=== PATIENT | male | born 2000 | race African-American/Black ===

== ENCOUNTER 2021-06-20 17:03 | Emergency (ER) | payer OTHER, SELFPAY ==
[2021-06-20 17:25] VITALS: BP 122/65; PULSE 59; RESP 18; TEMP 36.1; O2SAT 100; BMI 20.5
--- NOTE | 2021-06-20 18:11 | ED.MEDCLEAR ---
HPI - Medical Clearance General Chief complaint: Medical Clearance Stated complaint: withdrawal Time Seen by Provider: 06/20/21 18:11 Source: patient Mode of arrival: ambulatory Limitations: no limitations History of Present Illness HPI Narrative: 21-year-old male seeking detox from narcotic, patient use Percocet buy it from the street for the past 3 years, patient last use was yesterday, patient is afraid of withdrawal symptoms, this point patient feels just mild generalized body ache. basketball coach was talking to the patient will keep the patient emergency department for 2-3 hours to ensure he will not need Suboxone tonight. But otherwise patient was referred to [facility]one Clinic Related Information Allergies Allergy/AdvReac Type Severity Reaction Status Date / Time No Known Allergies Allergy Unverified 06/09/20 18:38 Review of Systems Review of Systems: All other systems are reviewed and are negative Constitutional: Reports as per HPI and Reports no additional constitutional complaints Eyes: Reports as per HPI and Reports no additional eye complaints Reports system reviewed and no additional complaints, except as documented Cardiovascular: Reports as per HPI and Reports no additional cardiovascular complaints Respiratory: Reports as per HPI and Reports no additional respiratory complaints Gastrointestinal: Reports as per HPI and Reports no additional gastrointestinal complaints Genitourinary: Reports no additional female genitourinary complaints Musculoskeletal: Reports no additional musculoskeletal complaints Skin/Breast: Reports system reviewed and no additional complaints, except as docu Psychiatric: Reports no additional psychiatric complaints Endocrine: Reports no additional endocrine complaints Hematologic/Lymphatic: Reports no additional hematologic/lymphatic complaints Allergic/Immunologic: Reports no additional allergic/immunologic complaints Reports system reviewed and no additional complaints, except as documented and Reports Abnormal speech [facility] Social History Social History Alcohol intake: former Patient Tobacco Use Status: Never used Tobacco Use of substances other than those prescribed or required for medical reasons: Yes Substance Use Type: Prescription Drugs Substance Use Frequency: Daily Last Used Substance: Hours (ago) Any prior treatment program specific to substance use: No Advance Directives: No Advance Directives Information Provided: No Physical Exam Vital Signs: Vital Signs: Last Vital Signs Temp 97.3 F 06/20/21 19:15 Pulse 64 06/20/21 19:15 Resp 18 06/20/21 19:15 BP 115/54 L 06/20/21 19:15 Pulse Ox 100 06/20/21 19:15 Body Mass Index 20.5 Vital signs have been reviewed as appeared to be correct. Blood pressure normal. Heart rate normal. Respiration rate normal. Temperature normal. Oxygen saturation normal. Appearance: Alert. Oriented X3. No acute distress. Head: Normal external exam. Normocephalic. Atraumatic. No Hinton signs noted. No raccoon eyes noted Eyes: PERRLA. EOMI. Conjunctiva and sclera normal. Eyelids normal. ENT: TM's Normal. Pharynx normal. Uvula midline. Moist mucous membranes. No trismus noted. No drooling noted. No muffled voice noted. Neck: Normal inspection. Neck supple. FROM. No adenopathy. Thyroid Normal. No meningeal signs. No neck mass noted. CVS: Normal heart rate and rhythm. Heart sound normal. No murmurs noted. Pulses normal throughout. Respiratory: No respiratory distress. Painless inspiration. Breath sounds normal. No wheezes/rales/rhonchi noted. Chest nontender. No accessory muscle usage noted or decreased air movement noted. Abdomen: Soft and nontender. Bowel sounds normal in all 4 quadrants. No distention noted. No organomegaly noted. No visible injury noted. Back: No CVA tenderness. Full range of motion noted. Skin: Skin warm and dry. Normal skin color. Normal skin turgor. No rashes/lesions/lacerations noted. Extremities: No lower extremity edema. Extremities exhibit normal range of motion. Extremities nontender. Neuro: Oriented X 3. Cranial nerve exam: II-XII are grossly intact No motor deficit. No sensory deficit. Reflexes normal. Course Course Course Narrative: Assessment and plan. 21-year-old male with chronic use of narcotic, patient is seeking detox and worried about withdrawal symptoms, patient was observed in the emergency department for 3 hours with no withdrawal symptoms patient was instructed if he starts to develop withdrawal symptoms to seek immediate medical attention otherwise to follow the plan which follow-up tomorrow at the Suboxone clinic. [facility] - Medical Clearance Lab Data Attestation: I reviewed the patient's lab results. Labs: Lab Results 06/20/21 06/20/21 Range/Units 18:46 19:11 Urine Opiates Screen Not Detected (Not Detect) Urine Fentanyl Screen POSITIVE H (Not Detect) Ur Barbiturates Screen Not Detected (Not Detect) Ur Phencyclidine Scrn Not Detected (Not Detect) Ur Amphetamines Screen Not Detected (Not Detect) U Benzodiazepines Scrn Not Detected (Not Detect) Urine Cocaine Screen Not Detected (Not Detect) U Marijuana (THC) Screen POSITIVE H (Not Detect) COVID-19 ([facility]) Negative (Negative) COVID-19 Clin Com See Note Discharge Plan Discharge Clinical Impression: Substance abuse Patient Disposition: Home, Self-Care Instructions: Narcotic Withdrawal (ED) Additional Instructions: Follow-up with Suboxone Clinic as planned. Referrals: [facility] [Primary Care Provider] - 2 days
--- NOTE | 2021-06-20 18:26 | MHC.RECOVSUP ---
? Reason for consult Recovery Support o Current location: ED18H o Identified substance use concern: Opiate - Withdrawal - Support ? Intervention: o MAT to be started in the ED o Community resources provided o Harm reduction discussion ? Plan: o Referral to [facility] o Patient to follow up with H after discharge ? Additional information: Patient came to the ED seeking help with withdrawal of Opiate Pills. Patient wants to get started on MAT here in the ED then go tomorrow to the [facility] to start the the program... Patient is in the Ed waiting to be clear to be dose.
[2021-06-20 19:06] LABS: Amphetamine Screen Urine Not Detected (Not Detect); Barbiturates, Urine Not Detected (Not Detect); Benzodiazepines Screen Urine Not Detected (Not Detect); Cannabinoid Screen Urine POSITIVE (Not Detect); Cocaine Screen Urine Not Detected (Not Detect); Fentanyl, urine POSITIVE (Not Detect); Opiate Screen Urine Not Detected (Not Detect); Phencyclidine Screen Urine Not Detected (Not Detect)
[2021-06-20 19:15] VITALS: BP 115/54; PULSE 64; RESP 18; TEMP 36.3; O2SAT 100
[2021-06-20 19:35] LABS: COVID-19 Test Negative (Negative)
--- NOTE | 2021-06-20 19:44 | PC.NURSE ---
Pt alert and oriented x4, calm and cooperative. Pt denies pain. No signs of withdrawals noted. Pt resting in stretcher calmly, will continue to monitor.
--- NOTE | 2021-06-20 21:04 | PC.NURSE ---
Pt alert and oriented x4, calm and cooperative. Pt denies pain. Pt denies withdrawal symptoms at this time. No withdrawals noted. Vitals stable. No IV in place. Pt educated on dc. Pt ambulated to private car.
== END 2021-06-20 21:06 | disposition home or self-care (01) ==
PROVIDERS: Emergency Provider Emergency Medicine
DX: F19.939 Other psychoactive substance use, unspecified with withdrawal, unspecified (principal); Z20.822 Contact with and (suspected) exposure to COVID-19; Z79.899 Other long term (current) drug therapy; Z71.51 Drug abuse counseling and surveillance of drug abuser
CPT/HCPCS: 36415; 80307; 87635; 99284

== ENCOUNTER 2021-06-22 04:38 | Emergency (ER) | payer OTHER, SELFPAY ==
[2021-06-22 04:50] VITALS: BP 126/80; PULSE 62; RESP 18; TEMP 36.2; O2SAT 99; BMI 20.5
--- NOTE | 2021-06-22 05:07 | ED.GENADULT ---
HPI - General Adult General Chief complaint: General Medical Stated complaint: withdrawls Time Seen by Provider: 06/22/21 05:07 Source: patient Mode of arrival: ambulatory Limitations: no limitations History of Present Illness HPI narrative: Patient has been using fentanyl and oxycodone. Patient states he stopped 36 hours ago Onset (ago): hour(s) Pain Consistency: constant Relieving factors: none Exacerbating factors: none Associated symptoms: fever/chills, nausea/vomiting and shortness of breath Related Data Allergies Allergy/AdvReac Type Severity Reaction Status Date / Time No Known Allergies Allergy Unverified 06/09/20 18:38 Review of Systems Constitutional: Constitutional: Reports no additional constitutional complaints Eyes: Eyes: Reports no additional eye complaints ENT: Denies dizziness Cardiovascular: Cardiovascular: Reports no additional cardiovascular complaints Respiratory: Respiratory: Reports as per HPI Gastrointestinal: Gastrointestinal: Reports no additional gastrointestinal complaints Musculoskeletal: Musculoskeletal: Reports no additional musculoskeletal complaints Integumentary/Breasts: Skin/Breast: Denies rash Neurologic: Reports system reviewed and no additional complaints, except as documented, Denies dizziness and Denies Sensory deficit (Neuro) Psychiatric: Psychiatric: Denies anxiety [facility] Social History Social History Alcohol intake: former Patient Tobacco Use Status: Never used Tobacco Substance Use Type: Prescription Drugs Advance Directives: No Advance Directives Information Provided: Yes Physical Exam Vital Signs: Vital Signs: Last Vital Signs Temp 97.2 F 06/22/21 04:50 Pulse 62 06/22/21 04:50 Resp 18 06/22/21 04:50 BP 126/80 06/22/21 04:50 Pulse Ox 99 06/22/21 04:50 Body Mass Index 20.5 Const: General: healthy appearing Nutritional Appearance: average body habitus Orientation/consciousness: oriented to person and patient oriented x3 Limitations: no limitations HENMT: Head: Yes normal to inspection Ears: external ears normal General nose exam: Normal external nose present Mouth: Normal oral and palatal mucosa present and oropharynx normal Throat: Yes posterior oropharynx normal Eyes: General: appearance normal, both eyes and all related structures Neck: Other: supple Neck: Yes normal visual inspection Chest: Chest palpation & inspection: normal inspection of the chest Resp: Auscultation: clear to auscultation bilaterally Cardio: Jugular venous distension: no JVD Rate: regular rate Rhythm: regular rhythm Heart sounds: S1 normal heart sound present and S2 normal heart sound present GI: Inspection: Yes normal to inspection Palpation (GI): Soft to palpation, nontender and No hepatosplenomegaly present Auscultation: normal bowel sounds : General: Yes no CVA tenderness Back/Spine/Pelvis: Back: no CVA tenderness Skin: General skin exam: no rashes or lesions noted Neuro: General: oriented to person and patient oriented x3 Cranial nerves: Yes CN's II-XII intact bilaterally Motor exam (neuro): 5/5 motor strength present throughout Sensory Exam: No Sensory deficit (Neuro) Extrem: General: Yes normal to inspection Psych: Appearance: grossly normal Course Reevaluation(s) Reevaluation #1: gave patient clonidine. Told him he must go to detox Time: 05:09 Discharge Plan Discharge Clinical Impression: Opiate dependence, continuous Patient Disposition: Home, Self-Care Instructions: Opioid Withdrawal (ED), Narcotic Withdrawal (ED) Additional Instructions: must go to detox Referrals: Physician,None [Primary Care Provider] - 2 days
--- NOTE | 2021-06-22 05:08 | PC.NURSE ---
at bedside for primary eval.
--- NOTE | 2021-06-22 05:09 | PC.NURSE ---
PT admits to self medicating at home last night with suboxone, clonidine, and hydroxyzine. PT stated that he last used almost 24 hours ago with percocets made on the streets . Starting to feel sick . PT stated that he wants to go to detox and get clean.
[2021-06-22 05:18] VITALS: BP 103/58; PULSE 78
[2021-06-22] MEDS: cloNIDine HCL 0.1 MG TABLET PO (05:18)
== END 2021-06-22 05:33 | disposition home or self-care (01) ==
LOC: HO.ED 05:12
PROVIDERS: Emergency Provider Emergency Medicine
DX: F11.23 Opioid dependence with withdrawal (principal); Z71.51 Drug abuse counseling and surveillance of drug abuser
CPT/HCPCS: 99283

== ENCOUNTER 2021-07-07 14:03 | Outpatient (REF) | payer OTHER, SELFPAY ==
[2021-07-07 18:12] LABS: Fentanyl, urine POSITIVE (Not Detect)
== END 2021-07-07 14:04 | disposition home or self-care (01) ==
LOC: HO.LNP 14:03
PROVIDERS: Visit Provider Internal Medicine
DX: Z51.81 Encounter for therapeutic drug level monitoring (principal); F11.10 Opioid abuse, uncomplicated; Z79.899 Other long term (current) drug therapy
CPT/HCPCS: 80305; 80307; 99202

== ENCOUNTER 2021-07-21 13:19 | Outpatient (REF) | payer OTHER, SELFPAY ==
[2021-07-21 17:58] LABS: Fentanyl, urine POSITIVE (Not Detect)
== END 2021-07-21 13:20 | disposition home or self-care (01) ==
LOC: HO.LNP 13:19
PROVIDERS: Visit Provider Internal Medicine
DX: F11.10 Opioid abuse, uncomplicated (principal); Z79.899 Other long term (current) drug therapy
CPT/HCPCS: 80305; 80307; 99212

== ENCOUNTER 2021-07-28 14:26 | Outpatient (REF) | payer OTHER, SELFPAY ==
[2021-07-28 18:25] LABS: Fentanyl, urine POSITIVE (Not Detect)
== END 2021-07-28 14:27 | disposition home or self-care (01) ==
LOC: HO.LNP 14:26
PROVIDERS: Visit Provider Internal Medicine
DX: F11.20 Opioid dependence, uncomplicated (principal)
CPT/HCPCS: 80305; 80307; 99212

== ENCOUNTER 2021-08-04 14:25 | Outpatient (REF) | payer OTHER, SELFPAY ==
[2021-08-04 17:46] LABS: Fentanyl, urine POSITIVE (Not Detect)
== END 2021-08-04 14:26 | disposition home or self-care (01) ==
LOC: HO.LNP 14:25
PROVIDERS: Visit Provider Internal Medicine
DX: F11.10 Opioid abuse, uncomplicated (principal); Z51.81 Encounter for therapeutic drug level monitoring
CPT/HCPCS: 80305; 80307; 99212

== ENCOUNTER 2021-08-11 13:52 | Outpatient (REF) | payer OTHER, SELFPAY ==
[2021-08-11 17:53] LABS: Fentanyl, urine POSITIVE (Not Detect)
[2021-08-17 10:07] LABS: Buprenorphine 72 (H); Naloxone 21 (H)
== END 2021-08-11 13:53 | disposition home or self-care (01) ==
LOC: HO.LNP 13:52
PROVIDERS: Visit Provider Internal Medicine
DX: F11.10 Opioid abuse, uncomplicated (principal); Z51.81 Encounter for therapeutic drug level monitoring
CPT/HCPCS: 80305; 80307; 80348; 80362; 99212

== ENCOUNTER 2021-08-29 15:09 | Outpatient (REF) | payer OTHER, SELFPAY ==
[2021-08-29 16:22] LABS: Fentanyl, urine POSITIVE (Not Detect)
[2021-09-09 08:08] LABS: Buprenorphine 60; Naloxone 19; Norbuprenorphine 141
== END 2021-08-29 15:10 | disposition home or self-care (01) ==
LOC: HO.LNP 15:09
PROVIDERS: Visit Provider Internal Medicine
DX: F11.10 Opioid abuse, uncomplicated (principal)
CPT/HCPCS: 80305; 80307; 80348; 80362; 99212

== ENCOUNTER 2021-09-25 13:36 | Outpatient (REF) | payer OTHER, SELFPAY ==
[2021-09-25 18:16] LABS: Fentanyl, urine POSITIVE (Not Detect)
== END 2021-09-25 13:37 | disposition home or self-care (01) ==
LOC: HO.LNP 13:36
PROVIDERS: Visit Provider Internal Medicine
DX: F11.20 Opioid dependence, uncomplicated (principal); Z79.899 Other long term (current) drug therapy
CPT/HCPCS: 80305; 80307; 99212

== ENCOUNTER 2021-10-02 15:01 | Outpatient (REF) | payer OTHER, SELFPAY ==
[2021-10-02 17:18] LABS: Fentanyl, urine Not Detected (Not Detect)
== END 2021-10-02 15:02 | disposition home or self-care (01) ==
LOC: HO.LNP 15:01
PROVIDERS: Visit Provider Internal Medicine
DX: Z51.81 Encounter for therapeutic drug level monitoring (principal)
CPT/HCPCS: 80305; 80307

== ENCOUNTER 2021-10-13 14:23 | Outpatient (REF) | payer MEDICAID, SELFPAY ==
[2021-10-13 16:56] LABS: Fentanyl, urine Not Detected (Not Detect)
== END 2021-10-13 14:24 | disposition home or self-care (01) ==
LOC: HO.LNP 14:23
PROVIDERS: Visit Provider Internal Medicine
DX: Z51.81 Encounter for therapeutic drug level monitoring (principal); Z79.899 Other long term (current) drug therapy
CPT/HCPCS: 80305; 80307; 99211

== ENCOUNTER → 2021-11-01 11:11 | Outpatient (BNVA) | payer MEDICAID, SELFPAY | PROVIDERS: Visit Provider Internal Medicine | DX: Z51.81 Encounter for therapeutic drug level monitoring (principal); F11.20 Opioid dependence, uncomplicated | CPT/HCPCS: 80305; 99211 ==

== ENCOUNTER → 2021-11-14 14:40 | Outpatient (BNVA) | payer MEDICAID, SELFPAY | PROVIDERS: Visit Provider Internal Medicine | DX: F11.20 Opioid dependence, uncomplicated (principal) | CPT/HCPCS: 80305 ==

== ENCOUNTER → 2021-11-29 14:50 | Outpatient (BNVA) | payer MEDICAID, SELFPAY | PROVIDERS: Visit Provider Internal Medicine | DX: F11.20 Opioid dependence, uncomplicated (principal) | CPT/HCPCS: 80305; 99212 ==

== ENCOUNTER 2021-12-29 14:39 | Outpatient (REF) | payer MEDICAID, SELFPAY ==
[2021-12-29 17:04] LABS: Fentanyl, urine Not Detected (Not Detect)
== END 2021-12-29 14:40 | disposition home or self-care (01) ==
LOC: HO.LNP 14:39
PROVIDERS: Visit Provider Internal Medicine
DX: F11.10 Opioid abuse, uncomplicated (principal); Z51.81 Encounter for therapeutic drug level monitoring; Z79.899 Other long term (current) drug therapy
CPT/HCPCS: 80305; 80307; 99212

== ENCOUNTER → 2022-01-29 14:37 | Outpatient (BNVA) | payer MEDICAID, SELFPAY | PROVIDERS: Visit Provider Internal Medicine | DX: Z51.81 Encounter for therapeutic drug level monitoring (principal); F11.10 Opioid abuse, uncomplicated | CPT/HCPCS: 80305; 99212 ==

== ENCOUNTER → 2022-03-05 15:01 | Outpatient (BNVA) | payer MEDICAID, SELFPAY | PROVIDERS: Visit Provider Internal Medicine | DX: Z51.81 Encounter for therapeutic drug level monitoring (principal); F11.20 Opioid dependence, uncomplicated; F11.10 Opioid abuse, uncomplicated | CPT/HCPCS: 80305; 99212 ==

== ENCOUNTER → 2022-04-11 13:35 | Outpatient (BNVA) | payer MEDICAID, SELFPAY | PROVIDERS: Visit Provider Internal Medicine | DX: F11.20 Opioid dependence, uncomplicated (principal) | CPT/HCPCS: 80305; 99212 ==

== ENCOUNTER → 2022-05-15 15:46 | Outpatient (BNVA) | payer MEDICAID, SELFPAY | PROVIDERS: Visit Provider Internal Medicine | DX: F11.10 Opioid abuse, uncomplicated (principal); Z51.81 Encounter for therapeutic drug level monitoring; F12.90 Cannabis use, unspecified, uncomplicated | CPT/HCPCS: 99212 ==

== ENCOUNTER → 2022-06-22 13:36 | Outpatient (BNVA) | payer MEDICAID, SELFPAY | PROVIDERS: Visit Provider Internal Medicine | DX: F11.20 Opioid dependence, uncomplicated (principal) | CPT/HCPCS: 99212 ==

== ENCOUNTER → 2022-07-18 14:54 | Outpatient (BNVA) | payer MEDICAID, SELFPAY | PROVIDERS: Visit Provider Internal Medicine | DX: Z51.81 Encounter for therapeutic drug level monitoring (principal); F11.10 Opioid abuse, uncomplicated | CPT/HCPCS: 99212 ==

== ENCOUNTER → 2022-08-28 13:15 | Outpatient (BNVA) | payer MEDICAID, SELFPAY | PROVIDERS: Visit Provider Internal Medicine | DX: F11.20 Opioid dependence, uncomplicated (principal) | CPT/HCPCS: 99212 ==

== ENCOUNTER → 2022-09-26 11:14 | Outpatient (BNVA) | payer MEDICAID, SELFPAY | PROVIDERS: Visit Provider Nurse Practitioner Psychiatric/Mental Health | DX: F11.20 Opioid dependence, uncomplicated (principal) | CPT/HCPCS: 80305; 99212 ==

== ENCOUNTER → 2022-10-26 11:43 | Outpatient (BNVA) | payer MEDICAID, SELFPAY | PROVIDERS: Visit Provider Nurse Practitioner Psychiatric/Mental Health | DX: F11.20 Opioid dependence, uncomplicated (principal) | CPT/HCPCS: 99212 ==

== ENCOUNTER → 2022-12-07 11:05 | Outpatient (BNVA) | payer MEDICAID, SELFPAY | PROVIDERS: Visit Provider Nurse Practitioner Psychiatric/Mental Health | DX: Z51.81 Encounter for therapeutic drug level monitoring (principal); F11.21 Opioid dependence, in remission | CPT/HCPCS: 80305; 99212 ==

== ENCOUNTER → 2023-01-15 10:57 | Outpatient (BNVA) | payer MEDICAID, SELFPAY | PROVIDERS: Visit Provider Nurse Practitioner Psychiatric/Mental Health | DX: Z51.81 Encounter for therapeutic drug level monitoring (principal); F11.21 Opioid dependence, in remission | CPT/HCPCS: 80305; 99212 ==

== ENCOUNTER 2023-02-14 10:26 | Outpatient (REF) | payer MEDICAID, SELFPAY ==
[2023-02-14 12:49] LABS: Alanine Aminotransferase 14 U/L (0-40); Albumin Level 4.6 g/dL (3.5-5.0); Alkaline Phosphatase 85 U/L (39-117); Aspartate Amino Transferase 16 U/L (5-37); Bilirubin Direct 0.1 mg/dL (0.0-0.5); Bilirubin Total 0.3 mg/dL (0.0-1.0); Total Protein 7.3 g/dL (6.5-8.0)
== END 2023-02-14 10:27 | disposition home or self-care (01) ==
LOC: HO.LAB 10:26
PROVIDERS: Visit Provider Nurse Practitioner Psychiatric/Mental Health
DX: F11.21 Opioid dependence, in remission (principal)
CPT/HCPCS: 36415; 80076; 80305; 99212

== ENCOUNTER 2023-04-19 14:49 | Outpatient (AMB) | payer MEDICAID, SELFPAY ==
--- NOTE | 2023-04-19 14:50 | A.OFFVIS_ITS ---
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 Nervous about injection. [facility] Medical History Fentanyl use disorder, mild, abuse Opioid use disorder Social History Alcohol intake: former Patient Tobacco Use Status: Never used Tobacco Substance Use Type: Marijuana and Prescription Drugs Review of Systems Const Reports as per HPI and Reports no additional complaints Physical Exam Vital Signs: Last Vital Signs Pulse 81 04/19/23 14:53 BP 118/68 04/19/23 14:53 Pulse Ox 96 04/19/23 14:53 Oxygen Delivery Method Room Air 04/19/23 14:53 Const General: cooperative and healthy appearing Psych Appearance: well kempt Speech and movement: Clear speech present Affect: normal affect Attitude: cooperative Assessment & Plan Assessment & Plan (1) Opioid use disorder, moderate, in sustained remission: Code(s): F11.21 - Opioid dependence, in remission Plan: * will get injection at next visit * follow up two weeks Medications: Changed From buprenorphine-naloxone 8-2 mg (Suboxone) 1 film sublingual BID 30 days 60 ea 0RF To buprenorphine-naloxone 8-2 mg (Suboxone) 1 film sublingual DAILY 10 ea 0RF 10 days Coding Level of Care Code Est Pt Level 3 (78721) Diagnoses Opioid use disorder, moderate, in sustained remission F11.21
[2023-04-19 14:53] VITALS: BP 118/68; PULSE 81; O2SAT 96
== END 2023-04-19 15:20 | disposition home or self-care (01) ==
LOC: HO.HCC 14:49
PROVIDERS: Visit Provider Nurse Practitioner Psychiatric/Mental Health
DX: F11.21 Opioid dependence, in remission (principal)
CPT/HCPCS: 99213

== ENCOUNTER → 2023-04-19 14:49 | Outpatient (BNVA) | payer MEDICAID, SELFPAY | PROVIDERS: Visit Provider Nurse Practitioner Psychiatric/Mental Health | DX: F11.21 Opioid dependence, in remission (principal) | CPT/HCPCS: 99213 ==

== ENCOUNTER 2023-05-08 14:17 | Outpatient (AMB) | payer MEDICAID, SELFPAY ==
--- NOTE | 2023-05-08 14:19 | A.OFFVIS_ITS ---
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 Allergies No Known Allergies Allergy (Verified 05/08/23 14:20) Do you need a note to return to daycare/school/sports/work: No HPI Sub Inj HPI Details Patient presents for follow up and 1st Sublocade injection No issues related to recovery Anxious about injection--questions answered [facility] Medical History Fentanyl use disorder, mild, abuse Opioid use disorder Social History Alcohol intake: former Patient Tobacco Use Status: Never used Tobacco Substance Use Type: Marijuana and Prescription Drugs Review of Systems Const Reports as per HPI and Reports no additional complaints Physical Exam Vital Signs: Last Vital Signs Pulse 55 05/08/23 14:27 BP 108/72 05/08/23 14:27 Pulse Ox 98 05/08/23 14:27 Oxygen Delivery Method Room Air 05/08/23 14:27 Const General: cooperative and healthy appearing Psych Appearance: well kempt Speech and movement: Clear speech present Affect: normal affect Attitude: cooperative Office Meds Sublocade ER Performing Provider: Marilynn Woo CNP Administered by: Shelly Monteiro RN on 05/08/23 15:54 Dose Route Admin Location Lot Number Expiration Date [place] Program Or Project Administrator 300 mg subcut LLQ [id number] 10/22/24 [address]-7 [employer] Comments: Pt education provided, pt to monitor for s/s of infection, pain, swelling, redness, discharge at area, warm to the touch and call the [facility]. Pt verbalized understanding. Pt tolerated injection. Results AMB 14 Panel Urine Drug Screen Urine Marijuana (THC) Positive Last Edit by Chrystal Byrd CMA on 05/08/23 14:37 Urine Cocaine Negative Last Edit by Chrystal Byrd CMA on 05/08/23 14:37 Urine Morphine Negative Last Edit by Chrystal Byrd CMA on 05/08/23 14:37 Urine Methamphetamine Negative Last Edit by Chrystal Byrd CMA on 05/08/23 14:37 Urine Amphetamine Negative Last Edit by Chrystal Byrd CMA on 05/08/23 14:3 7 Urine Benzodiazepine Negative Last Edit by Chrystal Byrd CMA on 05/08/23 14:37 Urine Barbiturates Negative Last Edit by Chrystal Byrd CMA on 05/08/23 14: 37 Urine Methadone Negative Last Edit by Chrystal Byrd CMA on 05/08/23 14:37 Urine Buprenorphine Positive Last Edit by Chrystal Byrd CMA on 05/08/23 14 :37 Urine Tricyclic Antidepressant Negative Last Edit by Chrystal Byrd CMA on 05/08/23 14:37 Urine MDMA Negative Last Edit by Chrystal Byrd CMA on 05/08/23 14:37 Urine Oxycodone Negative Last Edit by Chrystal Byrd CMA on 05/08/23 14:37 Urine Phencyclidine Negative Last Edit by Chrystal Byrd CMA on 05/08/23 14 :37 Urine Propoxyphene Negative Last Edit by Chrystal Byrd CMA on 05/08/23 14: 37 Results Reviewed Results Reviewed: Laboratory Last Values POC Urine Buprenorphine Positive 05/08/23 14:20 POC Urine Morphine Negative 05/08/23 14:20 POC Urine Oxycodone Negative 05/08/23 14:20 POC Urine Methadone Negative 05/08/23 14:20 POC Urine Propoxyphene Negative 05/08/23 14:20 POC Urine Barbiturates Negative 05/08/23 14:20 POC U Tricyclic Antidpr Negative 05/08/23 14:20 POC Urine PCP Negative 05/08/23 14:20 POC Ur Amphetamines Negative 05/08/23 14:20 POC Ur Methamphetamine Negative 05/08/23 14:20 POC Urine MDMA Negative 05/08/23 14:20 POC Ur Benzodiazepine Negative 05/08/23 14:20 POC Urine Cocaine Negative 05/08/23 14:20 POC Ur Marijuana (THC) Positive 05/08/23 14:20 Assessment & Plan Assessment & Plan (1) Opioid use disorder, moderate, in sustained remission: Code(s): F11.21 - Opioid dependence, in remission Plan: * tolerated injection * follow up 4 weeks * encouraged to call office with any questions or concerns prior to next appt Orders: Orders AMB Buprenorphine Injection - Patient Supplied 05/08/23 F11.21 - Opioid dependence, in remission AMB 14 Panel Urine Drug Screen 05/08/23 Z51.81 - Encounter for therapeutic drug level monitoring Coding Level of Care Code Est Pt Level 3 (70345) Diagnoses Opioid use disorder, moderate, in sustained remission F11.21
[2023-05-08 14:27] VITALS: BP 108/72; PULSE 55; O2SAT 98
== END 2023-05-08 15:08 | disposition home or self-care (01) ==
LOC: HO.HCC 14:17
PROVIDERS: Visit Provider Nurse Practitioner Psychiatric/Mental Health
DX: F11.21 Opioid dependence, in remission (principal)
CPT/HCPCS: 99213; Q9992

== ENCOUNTER → 2023-05-08 14:17 | Outpatient (BNVA) | payer MEDICAID, SELFPAY | PROVIDERS: Visit Provider Nurse Practitioner Psychiatric/Mental Health | DX: F11.21 Opioid dependence, in remission (principal); Z51.81 Encounter for therapeutic drug level monitoring; Z79.899 Other long term (current) drug therapy | CPT/HCPCS: 80305; 96372; 99213 ==

== ENCOUNTER 2023-06-17 13:17 | Outpatient (AMB) | payer MEDICAID, SELFPAY ==
--- NOTE | 2023-06-17 13:27 | AM.OFFVISNUR ---
Intake Intake Visit Reasons: Sub Inj Allergies No Known Allergies Allergy (Verified 05/08/23 14:20) Office Meds Sublocade 300 mg/1.5 mL solution,extended release subcutaneous syringe Performing Provider: Marilynn Woo CNP Performing Location: [facility] Administered by: Shelly Monteiro RN on 06/17/23 13:52 Dose Route Admin Location Dispensed Lot Number Expiration Date [facility] Corn Husker 300 mg subcut RLQ 1.5 mL [id number] 11/20/24 [address]-6 [employer] Comments: T/W assessed for infection, no pain, no swelling, no redness, no exudate, no fever. Pt reminded to monitor for above and call the [facility]. Pt verbalized understanding. Pt tolerated injection. Results AMB 14 Panel Urine Drug Screen Urine Marijuana (THC) Positive Last Edit by Shelly Monteiro RN on 06/17/23 13:51 Urine Cocaine Negative Last Edit by Shelly Monteiro RN on 06/17/23 13:51 Urine Morphine Negative Last Edit by Shelly Monteiro RN on 06/17/23 13:51 Urine Methamphetamine Negative Last Edit by Shelly Monteiro RN on 06/17/23 13:51 Urine Amphetamine Negative Last Edit by Shelly Monteiro RN on 06/17/23 13:51 Urine Benzodiazepine Negative Last Edit by Shelly Monteiro RN on 06/17/23 13:51 Urine Barbiturates Negative Last Edit by Shelly Monteiro RN on 06/17/23 13:51 Urine Methadone Negative Last Edit by Shelly Monteiro RN on 06/17/23 13:51 Urine Buprenorphine Positive Last Edit by Shelly Monteiro RN on 06/17/23 13:51 Urine Tricyclic Antidepressant Negative Last Edit by Shelly Monteiro RN on 06/17/23 13:51 Urine MDMA Negative Last Edit by Shelly Monteiro RN on 06/17/23 13:51 Urine Oxycodone Negative Last Edit by Shelly Monteiro RN on 06/17/23 13:51 Urine Phencyclidine Negative Last Edit by Shelly Monteiro RN on 06/17/23 13:51 Urine Propoxyphene Negative Last Edit by Shelly Monteiro RN on 06/17/23 13:51 Coding Assessment & Plan Assessment & Plan Orders: Orders AMB Buprenorphine Injection - Patient Supplied Today F11.21 - Opioid dependence, in remission AMB 14 Panel Urine Drug Screen Today Z51.81 - Encounter for therapeutic drug level monitoring
== END 2023-06-17 14:39 | disposition home or self-care (01) ==
LOC: HO.HCC 13:17
DX: Z51.81 Encounter for therapeutic drug level monitoring (principal); F11.21 Opioid dependence, in remission
CPT/HCPCS: Q9992

== ENCOUNTER → 2023-06-17 13:17 | Outpatient (BNVA) | payer MEDICAID, SELFPAY | DX: Z51.81 Encounter for therapeutic drug level monitoring (principal); F11.21 Opioid dependence, in remission | CPT/HCPCS: 80305; 96372 ==

== ENCOUNTER 2023-07-17 13:19 | Outpatient (AMB) | payer MEDICAID, SELFPAY ==
--- NOTE | 2023-07-17 13:20 | AM.OFFVISNUR ---
Intake Vital Signs 07/17/23 13:32 BP 118/70 Blood Pressure Location Lt radial Position Sitting Pulse 86 Pulse Source Pulse Oximeter Pulse Oximetry (%) 94 Oxygen Delivery Method Room Air Intake Visit Reasons: Sub Inj Intake Note: the patient presents for a sub inj Patient Access Registrar Required: No Allergies No Known Allergies Allergy (Verified 07/17/23 13:33) Do you need a note to return to daycare/school/sports/work: No Office Meds Sublocade 100 mg/0.5 mL solution,extended release subcutaneous syringe Performing Provider: Marilynn Woo CNP Performing Location: [facility] Administered by: Yesenia Ta RN on 07/17/23 13:55 Dose Route Admin Location Dispensed Lot Number Expiration Date [facility] Plant Operator/Shift 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 Comments: Pt education provided, instructed pt to monitor for s/s of infection, pain, swelling, redness, discharge, warmth-will call [facility] if needed. Pt verbalized understanding. Pt tolerated injection. Coding Assessment & Plan Assessment & Plan Orders: Orders AMB Buprenorphine Injection - Patient Supplied Today F11.21 - Opioid dependence, in remission
[2023-07-17 13:32] VITALS: BP 118/70; PULSE 86; O2SAT 94
--- NOTE | 2023-07-17 14:00 | AM.OFFVISNUR ---
Intake Vital Signs 07/17/23 13:32 BP 118/70 Blood Pressure Location Lt radial Position Sitting Pulse 86 Pulse Source Pulse Oximeter Pulse Oximetry (%) 94 Oxygen Delivery Method Room Air Intake Visit Reasons: Sub Inj Allergies No Known Allergies Allergy (Verified 07/17/23 13:33) Nursing Note Pt ed. provided for sub injection. Pt denied cravings. Pt doing well with recovery, utilizing support. Pt mentioned this may be his last dose of Sublocade. Provider met with pt and discussed options including Brixadi. Pt will follow up with any questions. Office Meds Sublocade 100 mg/0.5 mL solution,extended release subcutaneous syringe Performing Provider: Marilynn Woo CNP Performing Location: [facility] Administered by: Yesenia Ta RN on 07/17/23 13:55 Dose Route Admin Location Dispensed Lot Number Expiration Date [facility] Cane Stripper 100 mg subcut LLQ 0.5 mL [id number] 06/22/24 [address]-0 [employer]. Comments: Pt education provided, instructed pt to monitor for s/s of infection, pain, swelling, redness, discharge, warmth-will call [facility] if needed. Pt verbalized understanding. Pt tolerated injection. Coding Assessment & Plan Assessment & Plan Orders: Orders AMB Buprenorphine Injection - Patient Supplied Today F11.21 - Opioid dependence, in remission
== END 2023-07-17 13:54 | disposition home or self-care (01) ==
DX: F11.21 Opioid dependence, in remission (principal)

== ENCOUNTER → 2023-07-17 13:19 | Outpatient (BNVA) | payer MEDICAID, SELFPAY | DX: Z51.81 Encounter for therapeutic drug level monitoring (principal); F11.21 Opioid dependence, in remission | CPT/HCPCS: 96372; Q9992 ==

== ENCOUNTER 2024-10-15 02:02 | Emergency (ER) | payer MEDICAID, SELFPAY ==
--- NOTE | 2024-10-15 | ECG_ITS ---
Test Reason : DIZZINESS Blood Pressure : */* mmHG Vent. Rate : 93 BPM Atrial Rate : 93 BPM P-R Int : 140 ms QRS Dur : 86 ms QT Int : 338 ms P-R-T Axes : 77 88 56 degrees QTcB Int : 420 ms Normal sinus rhythm Normal ECG No previous ECGs available Referred By: Generic ED Physician Electronically Signed By: RADU BOWMAN MD
[2024-10-15 02:05] VITALS: BP 129/79; PULSE 86; RESP 16; TEMP 36.7; O2SAT 99; BMI 19.0
[2024-10-15 02:23] LABS: MANUAL DIFF FLAG NO
[2024-10-15 02:25] LABS: Basophils Percent Auto 0.5 % (0-2); Eosinophils Absolute Auto 0.1 X10*3/uL (0.0-0.4); Hematocrit 43.7 % (42.0-52.0); Hemoglobin 15.2 g/dl (14.0-18.0); Imm Gran Abs Auto 0.02 X10*3/uL (0.00-0.03); Imm Gran Pct Auto 0.3 % (0.0-0.4); Lymphocytes Absolute Auto 1.5 X10*3/uL (1.2-4.9); Lymphocytes Percent Auto 22.9 % (20-40); Mean Corpuscular HGB Conc 34.8 g/dl (31.0-36.0); Mean Corpuscular Hemoglobin 30.2 pg (27.0-33.0); Mean Corpuscular Volume 86.7 fL (80.0-98.0); Mean Platelet Volume 8.2 fL (9.4-12.4); Monocytes Absolute Auto 0.6 X10*3/uL (0.1-1.2); Neutrophils Absolute Auto 4.2 x10*3/uL (2.0-8.3); Neutrophils Percent Auto 65.3 % (45-73); Platelet Count 306 X10*3/uL (160-400); Red Blood Count 5.04 X10*6/uL (4.60-5.80); Red Cell Distribution Width 11.9 % (11.0-16.0); White Blood Count 6.4 X10*3/uL (4.8-10.8)
[2024-10-15 02:54] LABS: Alanine Aminotransferase 28 U/L (0-40); Albumin Level 4.7 g/dL (3.5-5.0); Alkaline Phosphatase 62 U/L (39-117); Anion Gap 14 (12-20); Aspartate Amino Transferase 23 U/L (5-37); Bilirubin Total 0.5 mg/dL (0.0-1.0); Blood Urea Nitrogen 11 mg/dL (9-16); Calcium 9.8 mg/dL (8.4-10.2); Carbon Dioxide 25 mmol/L (22-29); Chloride 106 mmol/L (96-108); Creatinine Clr Calc Pharmacy 120.4; Estimated Glomerular Filt Rate > 60; Glucose Random 93 mg/dL (60-115); Potassium 3.9 mmol/L (3.3-5.1); Sodium 141 mmol/L (135-145); Total Protein 8.1 g/dL (6.5-8.0)
== END 2024-10-15 04:36 | disposition left against medical advice (07) ==
PROVIDERS: Emergency Provider Emergency Medicine; PCP Internal Medicine
DX: R42 Dizziness and giddiness (principal); Z53.21 Procedure and treatment not carried out due to patient leaving prior to being seen by health care provider
CPT/HCPCS: 36415; 80053; 85025; 93005; 99281; 99283

== ENCOUNTER → 2024-10-15 02:18 | Outpatient (BNV) | payer MEDICAID, SELFPAY | PROVIDERS: Emergency Provider Emergency Medicine; PCP Internal Medicine; Visit Provider Internal Medicine Cardiovascular Disease | DX: R42 Dizziness and giddiness (principal) | CPT/HCPCS: 93010 ==

== ENCOUNTER 2025-07-20 22:10 | Emergency (ER) | payer MEDICAID, SELFPAY ==
[2025-07-20 22:20] VITALS: BP 128/66; PULSE 96; RESP 20; TEMP 36.6; O2SAT 99; BMI 19.9
--- OUTSIDE RECORDS SUMMARY | 2025-07-20 22:31 | XMS_ITS | Clinical Summary ---
Author Organization [facility] Address [address] [place] [phone] Phone Care Team Providers Care Stator Winder Name Role Phone Unknown, Unknown Primary Care Provider Gladis duron Allergies No known active allergies Medications No known medications Social History Tobacco Use Types Packs/Day Years Used Date Smoking Tobacco: Never Smokeless Tobacco: Never Alcohol Use Standard Drinks/Week Comments Yes 0 (1 standard drink = 0.6 oz pur e alcohol) occasional Education Answer Date Recorded Are you interested in more education? Not on sridhar e 01/18/2023 Are you concerned about learning? Not on file 01/18/2023 No 01/18/2023 No 01/18/2023 Digital Access Answer Date Recorded No 02/18/2023 No 02/18/2023 No 02/18/2023 Reliable internet access at home? Not on file 02/18/2023 Device with a working camera? Not on file Sex and Gender Information Value Date Recorded Sex Assigned at Male 02/28/2019 4:13 AM EDT Legal Sex Male 8:47 PM EDT Gender Identity Male 02/28/2019 4:13 AM EDT Sexual Orientation Straight 02/28/2019 4: 13 AM EDT Last Filed Vital Signs Vital Sign Reading Time Taken Comments Blood Pressure 131/82 02/28/2019 6:28 AM EDT Pulse 89 02/28/2019 6:28 AM EDT Temperature 36.9 C (98.5 F) 02/28/2019 4:08 AM EDT Respiratory Rate 17 02/28/2019 6:28 AM EDT Oxygen Saturation 99% 02/28/2019 6:28 AM EDT Inhaled Oxygen Concentration - - Weight 62.6 kg (138 lb) 02/28/2019 4:08 AM EDT Height 188 cm (6' 2 ) 02/28/2019 4:08 AM EDT Body Mass Index 17.72 02/28/2019 4:08 AM EDT Plan of Treatment Not on file Medical Devices Not on file Insurance UNITED R UNITED R [facility] R [facility] [place] [facility] [id number] [place], [place] [id number] UNITED R [facility] Care Teams Stator Winder Relationship Specialty Start Date End Date Unknown, Unknown, PCP - General 02/28/19 Additional Source Comments The information contained in this document represents components of the legal health record. It is not the complete legal health record.[facility]
--- NOTE | 2025-07-20 22:46 | ED_ITS ---
HPI - General Adult General Chief complaint: Skin/Abscess/Foreign Body Stated complaint: Cut while shaving Time Seen by Provider: 07/20/25 22:23 Source: patient Mode of arrival: ambulatory Limitations: no limitations History of Present Illness ED Provider: Dr. Alanna Monteiro HPI narrative: Patient comes to the emergency room complaining of 1 year of a strange sensation in his testicles. Patient states that sometimes they get swollen. Today, patient has no pain, no swelling, patient complaining of a weird sensation in the scrotum, but only when he touches it. Patient denies any recent injuries, denies hematuria or dysuria. Patient states that he has been tested multiple times for STDs and he has constant negative tests. Related Data Previous Rx's ?Medication ?Instructions ?Recorded naloxone 4 mg/actuation nasal 4 mg intranasal Q2M PRN opioid 07/07/21 spray (Narcan) overdose 30 days #2 ea buprenorphine 300 mg/1.5 mL 300 mg (1.5 mL) subcut ONC E #1.5 mL 01/15/23 solution,exten.rel.subcutaneous syringe (Sublocade) buprenorphine 8 mg-naloxone 2 mg 1 film sublingual HERO LY PRN opioid 06/14/23 sublingual film (Suboxone) withdrawal 10 days #10 ea buprenorphine 100 mg/0.5 mL 100 mg (0.5 mL) subcut .CO MPLEX 06/18/23 solution,exten.rel.subcutaneous #0.5 mL syringe (Sublocade) Allergies Allergy/AdvReac Type Severity Reaction Status Date / Time No Known Allergies Allergy Verified 07/20/25 22:22 Review of Systems Review of Systems: Constitutional : No Weight loss, No Fever, No Chills, No Night Sweats, No Fatigue, No Malaise ENT/Mouth : No Hearing loss, No Ear Pain, No Nasal Congestion, No Sinus Pain, No Hoarseness, No sore throat, No Rhinorrhea, No Swallowing Difficulty Eyes: No Eye Pain, No Swelling, No Redness, No Foreign Body, No Discharge, No V ision Changes Cardiovascular : No Chest Pain, No SOB, No Dyspnea on Exertion, No Orthopnea, No Edema, No Palpitations Respiratory : No Cough, No Sputum, No Wheezing, No Smoke Exposure, No Dyspnea Gastrointestinal : No Nausea, No Vomiting, No Diarrhea, No Constipation, No abdominal Pain, No Hematochezia, No Melena Genitourinary : Complaining of occasional testicular discomfort bilaterally, more on the left, with palpable cord like structures inside of the scrotum. No Dysuria, No Urinary Frequency, No Hematuria, No Urinary Incontinence, No Urgency, No Flank Pain, No Urinary Flow Changes, No Hesitancy Musculoskeletal : No joint pain, No Myalgias, No Joint Swelling Skin : No Skin Lesions, No rash. Patient states that sometimes he see patches of redness in his skin but today has none. Neuro : No Weakness, No Numbness, No Paresthesias, No Loss of Consciousness, No Dizziness, No Headache Psych : No Anxiety/Panic, No Depression, No SI/HI/AH/VH, No Social Issues, Heme/Lymph: No Bruising, No Bleeding,No Lymphadenopathy Endocrine : No Polyuria, No Polydipsia, No Temperature Intolerance PMFSH Past Medical History Medical History Fentanyl use disorder, mild, abuse Opioid use disorder Social History Social History Alcohol intake: former Patient Tobacco Use Status: Never used Tobacco Use of substances other than those prescribed or required for medical reasons: No Substance Use Type: Marijuana and Prescription Drugs Advance Directives: No Advance Directives Information Provided: No Physical Exam ED Exam Exam: Appearance: Alert. Oriented X3. No acute distress. Eyes: Pupils equal, round and reactive to light. ENT: Pharynx normal. Neck: Normal inspection. Neck supple. No lymph nodes noted. No crepitus CVS: Normal heart rate and rhythm. Pulses normal. Normal S1 and S2 Respiratory: No respiratory distress. Breath sounds normal. No Wheezing. No rales Abdomen: Soft and nontender. No rigidity. No distention. : Externally, normal male genitalia, no rash. No palpable lymph nodes, no palpable inguinal nodes or hernias. In the scrotum,above the left, there are palpable vein like structures, like a palpable ?bag of worms . Mild discomfort to palpation. No rash, no erythema, no swelling. Varicocele physical exam Skin: Skin warm and dry. Normal skin color. Normal skin turgor. Extremities: No lower extremity edema. No Lacerations. No Rash Neuro: Oriented X 3. No motor deficit. No sensory deficit. Moving all extremities. No slurred speech. CN 2 through 12 grossly intact Psych: calm, cooperative, normal affect Vital Signs: Vital Signs - 24 hr 07/20/25 22:20 Temperature 97.9 F Pulse Rate 96 Respiratory Rate 20 Blood Pressure 128/66 Pulse Oximetry 99 Oxygen Delivery Method Room Air BMI result Body Mass Index 19.9 Course Course Course Narrative: Patient denies any acute symptoms. Patient states that he has been having this palpable structures in the scrotum for over a year now. Occasionally hurts. Today no pain or swelling. Medical Decision Making Medical Decision Making [facility] Narrative: Urinalysis negative for UTI. Per patient's request, he did not want to be tested for STDs, states he has been tested multiple times and it is always negative. I discussed the physical exam with the patient. Patient likely has varicocele. I discussed with the patient's that he needs to follow-up with urology. Depending on how advanced the varicocele is, the urologist may opt to just watch versus to surgery. Patient will be given a contact information for Urology. Differential Diagnosis Differential Diagnoses: The differential diagnosis associated with the presentation includes (UTI, sexually transmitted disease, varicocele, chronic epididymitis) Lab Data [facility] Lab Attestation statement: I reviewed the patient's lab results. Labs: Lab Results 07/20/25 Range/Units 22:51 Urine Color Yellow Urine Appearance Clear Urine pH 7.0 (5.0-9.0) Ur Specific [place] 1.025 (1.005-1.025) Urine Protein Negative (Neg-Trace) mg/dL Urine Glucose (UA) Negative (Negative) mg/dL Urine Ketones Trace (Negative) mg/dL Urine Blood Negative (Negative) Urine Nitrite Negative (Negative) Ur Leukocyte Esterase Negative (Negative) Discharge Plan Discharge Clinical Impression: Varicocele Patient Disposition: Home, Self-Care Instructions: Scrotal Pain (ED) Additional Instructions: Please follow-up with your primary care physician tomorrow. If you have any worsening or new symptoms, please return to the emergency room or call 911 Prescriptions: No Action buprenorphine-naloxone [Suboxone] 8-2 mg film 1 film sublingual DAILY PRN (Reason: opioid withdrawal) 10 Days Qty: 10 0RF Sublocade 100 mg/0.5 mL solution, extended rel syringe 100 mg subcut .COMPLEX Qty: 0.5 5RF Rx Instructions: 100 mg subcutaneously every 28 days; Narcan 4 mg/actuation spray,non-aerosol 4 mg intranasal Q2M PRN (Reason: opioid overdose) 30 Days Qty: 2 0RF Rx Instructions: spray 1 dose into ONE nostril; alternate nostrils w each dose until help arrives Sublocade 300 mg/1.5 mL solution, extended rel syringe 300 mg subcut ONCE Qty: 1.5 1RF Rx Instructions: once every 28 days Referrals: Naldo Ram MD [Physician, Urology] Referral Note: varicocelle Print Language: Armenian
[2025-07-20 23:03] LABS: Appearance Urine Clear; Glucose Urine UA Negative (Negative); PH 7.0 (5.0-9.0); Specific Gravity - Urine 1.025 (1.005-1.025)
[2025-07-20 23:24] VITALS: BP 113/51; PULSE 72; RESP 16; O2SAT 96
[2025-07-20 23:42] VITALS: BP 113/51; PULSE 72; RESP 16; TEMP 36.6; O2SAT 96
== END 2025-07-20 23:44 | disposition home or self-care (01) ==
PROVIDERS: Emergency Provider Emergency Medicine
DX: I86.1 Scrotal varices (principal)
CPT/HCPCS: 81003; 99283; 99284